=== PATIENT | male | born 1955 | race African-American/Black ===

== ENCOUNTER 2020-01-30 12:42 | Inpatient (IN) | payer OTHER ==
[~2020-01-30] VITALS: Ht 185.4 cm; Wt 102.0 kg
--- NOTE | 2020-01-30 12:42 | NUR ---
PT TO ROOM FOR BEDSIDE TRIAGE VIA ELS STRETCHER
[2020-01-30 15:13] LABS: HEMATOCRIT 44.3 % (39.0-50.0); HEMOGLOBIN 13.5 g/dl (14.0-18.0); IMMATURE GRANULOCYTES 0.9 % (0.0-5.0); MEAN CELL VOLUME 83.3 fL CALC (80.0-100.0); MEAN CORPUSCULAR HGB 25.4 pG CALC (26.0-32.0); MEAN CORPUSCULAR HGB CONC 30.5 g/dL CAL (32.0-36.0); NEUT# 7.74 thou/uL (1.82-7.42); RED BLOOD COUNT 5.32 mill/uL (4.70-6.10); RED CELL DISTRI WIDTH 14.1 % (11.5-15.5)
[2020-01-30 15:27] LABS: ALBUMIN 3.8 g/dL (3.2-5.0); BILIRUBIN, TOTAL 0.7 mg/dL (0.0-1.4); CREATININE 1.5 mg/dL (0.7-1.3); POTASSIUM 4.6 mmol/l (3.5-5.1); TOTAL PROTEIN 7.2 g/dL (6.3-8.2)
--- NOTE | 2020-01-30 15:36 | NUR ---
DELAY OF ANTIBIOTICS AND LABS DUE TO LACK OF IV ACCESS. PLACEMENT OF FEMORAL WAS DONE AND COMPLETED AT 1432. PT CURRENTLY WITHOUT DISTRESS.
[2020-01-30 15:44] LABS: C-REACTIVE PROTEIN 18.5 mg/dL (0-0.9)
--- NOTE | 2020-01-30 19:02 | NUR ---
REPORT CALLED AND GIVEN TO PABLO MILLAN. AWAITING TELE BOX BEFORE TRANSFERRING PATIENT
--- NOTE | 2020-01-30 19:41 | NUR ---
PT TRANSPORTED TO FLOOR VIA STRETCHER ON O2 @ 4 LPM. ESCORTED BY 2 OFFICERS. PT IN ANKLE SHACKLES.
--- NOTE | 2020-01-30 19:43 | NUR ---
PT ARRIVED TO FLOOR VIA STRETCHER ACCOMPAINED BY ER STAFF AND X2 GUARDS. PT SHACKLED BY RLE TO STRETCHER. ALERT AND ORIENTED. ON 3L/M 02 VIA NC. NO APPARENT DISTRESS OR SOB NOTED. PT AMBULATED FROM STRETCHER TO BED WITHOUT ASSISTANCE AND STEADY GAIT. SKIN INTACT. DISCUSSED POC AND ORIENTED TO ROOM AND CALL LIGHT SYSTEM. CALL LIGHT WITHIN REACH. WILL CONTINUE TO MONITOR.
[2020-01-30 20:45] VITALS: BP 131/77
--- NOTE | 2020-01-30 21:47 | NUR ---
PT MEDICATED ORDERED. EDUCATION PROVIDED. PT DENIES ANY CURRENT WANTS OR NEEDS. NO SOB OR PAIN AT THIS TIME. TRIPLE LUMEN TO RIGHT GROIN FLUSHED WELL WITH BLOOD RETURN NOTED. CALL LIGHT WITHIN REACH. X2 GUARDS REMAIN AT BEDSIDE. WILL CONTINUE TO MONITOR.
[2020-01-30 23:56] VITALS: BP 131/74
--- NOTE | 2020-01-31 01:22 | NUR ---
PT RESTING IN BED WITH EYES CLOSED. X2 GUARDS REMAIN AT BEDSIDE. NO APPARENT DISTRESS NOTED. [address] OPERATIONS AND INTELLIGENCE ASSISTANT IN PLACE. CALL LIGHT WITHIN REACH. WILL CONTINUE TO MONITOR.
[2020-01-31 05:03] VITALS: BP 127/82
--- NOTE | 2020-01-31 05:03 | NUR ---
LABS OBTAINED FROM TRIPLE LUMEN RIGHT FEMORAL CVAD PER ORDER. PT REQUEST SOMETHING FOR SORE THROAT AT THIS TIME. WILL NOTIFY IN CALL PHYSICIAN.
--- NOTE | 2020-01-31 05:39 | NUR ---
ORDERS RECEIVED FOR THROAT LOZENGE UPON REQUEST FOR SORE THROAT.
[2020-01-31 05:40] LABS: HEMATOCRIT 44.3 % (39.0-50.0); HEMOGLOBIN 13.4 g/dl (14.0-18.0); IMMATURE GRANULOCYTES 1.2 % (0.0-5.0); MEAN CELL VOLUME 83.3 fL CALC (80.0-100.0); MEAN CORPUSCULAR HGB 25.2 pG CALC (26.0-32.0); MEAN CORPUSCULAR HGB CONC 30.2 g/dL CAL (32.0-36.0); NEUT# 6.33 thou/uL (1.82-7.42); RED BLOOD COUNT 5.32 mill/uL (4.70-6.10); RED CELL DISTRI WIDTH 13.9 % (11.5-15.5)
[2020-01-31 06:04] LABS: ALBUMIN 3.5 g/dL (3.2-5.0); ALKALINE PHOSPHATASE 44 u/l (38-126); ANION GAP 11 (6-22 (CALC)); BILIRUBIN, TOTAL 0.6 mg/dL (0.0-1.4); BUN 23 mg/dL (8-23); BUN/CREATININE RATIO 23 (12-20 (CALC)); CARBON DIOXIDE 26 mmol/l (22-30); CHLORIDE 110 mmol/l (95-108); GFR > 60 ML/MIN (>=60 (CALC)); GFR FOR AFR.AMER. > 60 ML/MIN (>=60 (CALC)); SGOT/AST 58 u/l (19-48); SODIUM 142 mmol/l (137-146); TOTAL PROTEIN 6.7 g/dL (6.3-8.2)
--- NOTE | 2020-01-31 06:59 | NUR ---
PT MOVED TO ROOM 285 TO LIMIT AMOUNT OF EXPOSURE TO GUARDS.
[2020-01-31 07:30] VITALS: BP 123/77
--- NOTE | 2020-01-31 08:09 | NUR ---
Pt consents to pneumococcal vaccination, however reports he has already will received. Re-vaccination not indicated until >/=65 years old.
[2020-01-31 11:18] VITALS: BP 133/82
[2020-01-31 12:55] VITALS: BP 126/72
[2020-01-31 14:45] VITALS: BP 131/78
[2020-01-31 19:15] VITALS: BP 129/80
--- NOTE | 2020-01-31 19:25 | NUR ---
REPORT FROM GABRIELA MILLAN. ASSUME PT CARE.
--- NOTE | 2020-01-31 19:27 | NUR ---
new order this am for decadron 6mg, 6mg given and tolerated well, in to see, pt at bedside with 2 gurads no acute distress at this time
--- NOTE | 2020-01-31 21:11 | NUR ---
PT MEDICATED ORDERED. PT C/O SOB, 02 SATS 91-92% ON 4L/M VIA NC. ASSISTED PT WITH REPOSITIONED IN BED AND ENCOURAGED DEEP BREATHING EXERCISES. THROAT LOZENGE PROVIDED UPON REQUEST. TRIPLE LUMEN TO RIGHT FEMORAL, CDI AND FLUSHED WELL. NO OTHER CURRENT WANTS OR NEEDS. X2 GUARDS REMAIN AT BEDSIDE. PT SHACKLED TO BED BY LLE. CALL LIGHT WITHIN REACH. WILL CONTINUE TO MONITOR.
--- NOTE | 2020-02-01 01:52 | NUR ---
PT RESTING IN BED WITH EYES CLOSED. NO APPARENT DISTRESS NOTED. O2 IN PLACE. RESPIRATIONS EVEN AND UNLABORED. CALL LIGHT WITHIN REACH. WILL CONTINUE TO MONITOR.
[2020-02-01 04:50] VITALS: BP 118/81
[2020-02-01 06:35] LABS: HEMATOCRIT 44.8 % (39.0-50.0); HEMOGLOBIN 13.6 g/dl (14.0-18.0); IMMATURE GRANULOCYTES 1.5 % (0.0-5.0); MEAN CELL VOLUME 84.1 fL CALC (80.0-100.0); MEAN CORPUSCULAR HGB 25.5 pG CALC (26.0-32.0); MEAN CORPUSCULAR HGB CONC 30.4 g/dL CAL (32.0-36.0); NEUT# 8.21 thou/uL (1.82-7.42); RED BLOOD COUNT 5.33 mill/uL (4.70-6.10); RED CELL DISTRI WIDTH 13.9 % (11.5-15.5)
[2020-02-01 07:04] LABS: ALBUMIN 3.4 g/dL (3.2-5.0); ALKALINE PHOSPHATASE 33 u/l (38-126); BUN 22 mg/dL (8-23); BUN/CREATININE RATIO 24 (12-20 (CALC)); C-REACTIVE PROTEIN 6.3 mg/dL (0-0.9); CARBON DIOXIDE 25 mmol/l (22-30); CHLORIDE 110 mmol/l (95-108); CREATININE 0.9 mg/dL (0.7-1.3); GFR > 60 ML/MIN (>=60 (CALC)); GFR FOR AFR.AMER. > 60 ML/MIN (>=60 (CALC)); SGOT/AST 72 u/l (19-48); SODIUM 140 mmol/l (137-146); TOTAL PROTEIN 7.1 g/dL (6.3-8.2)
[2020-02-01 07:17] LABS: ANION GAP 11 (6-22 (CALC)); BILIRUBIN, TOTAL 1.1 mg/dL (0.0-1.4)
--- NOTE | 2020-02-01 09:10 | NUR ---
PT RESTING IN BED, ON SIGNS OF DISTRESS NOTED, RESP EVEN AND UNLABORED. PT C/O DRYNESS FROM OXYGEN, O2 HUMIDIFIED. PT ALERT AND ORIENTED X3, NO EDEMA, DISCUSSED POC, PT DENIES ANY PAIN AT THIS TIME, ONLY C/O SORETHROAT, LOZENGE PROVIDED. TRIPLE LUMEN CENTRAL LINE TO R FEMRAL FLUSHED WELL, ONLY BLOOD RETURN FROM WHITE LUMEN. ABD DISTENDED AND FIRM PT DENIES BM SINCE ADMIT. ASSESSMENT COMPLETED, CALL LIGHT IN REACH,CONTINUE TO MONITOR.
[2020-02-01 09:13] VITALS: BP 123/72
[2020-02-01 11:15] VITALS: BP 128/78
--- NOTE | 2020-02-01 12:30 | NUR ---
PT RESTING IN BED, LUNCH PROVIDED, NO SIGNS OF DISTRESS NOTED, RESP EVEN AND UNLABORED. GUARDS X2, CALL LIGHT IN REACH,CONTINUE TO MONITOR.
[2020-02-01 15:00] VITALS: BP 119/73
--- NOTE | 2020-02-01 15:56 | NUR ---
IV ZITHRO INITIATED, PT REQUESTING THROAT LOZENGE, NO SIGNS OF DISTRESS NOTED, RESP EVEN AND UNLABORED. CALL LIGHT IN REACH,CONTINUE TO MONITOR.
--- NOTE | 2020-02-01 19:02 | NUR ---
REPORT FROM LUBA PAGE. ASSUME PT CARE AT THIS TIME.
--- NOTE | 2020-02-01 20:53 | NUR ---
PT MEDICATED ORDERED. 02 SAT 92% ON 4L/M VIA NC. ENCOURAGED PT TO PULL SELF UP IN BED, KEEP HOB ELEVATED, AND DEEP BREATHIN EXERCISES. THROAT LOZENGE PROVIDED UPON REQUEST. TRIPLE LUMEN TO RIGHT FEMORAL, CDI AND FLUSHED WELL. NO OTHER CURRENT WANTS OR NEEDS. X2 GUARDS REMAIN AT BEDSIDE. PT SHACKLED TO BED BY RLE. CALL LIGHT WITHIN REACH. WILL CONTINUE TO MONITOR.
[2020-02-01 21:50] VITALS: BP 126/88
[2020-02-02 00:15] VITALS: BP 140/80
--- NOTE | 2020-02-02 00:15 | NUR ---
PT RESTING IN BED WITH EYES CLOSED. NO APPARENT DISTRESS NOTED. REMAINS ON 4L/M O2 VIA NC. VSS. CALL LIGHT WITHIN REACH. WILL CONTINUE TO MONITOR.
--- NOTE | 2020-02-02 04:03 | NUR ---
[facility] CALLED AND UPDATED ON PT CONDITION AT THIS TIME.
[2020-02-02 04:20] VITALS: BP 134/70
[2020-02-02 12:20] LABS: ANION GAP 13 (6-22 (CALC)); BUN 23 mg/dL (8-23); BUN/CREATININE RATIO 24 (12-20 (CALC)); CARBON DIOXIDE 19 mmol/l (22-30); CHLORIDE 114 mmol/l (95-108); GFR > 60 ML/MIN (>=60 (CALC)); GFR FOR AFR.AMER. > 60 ML/MIN (>=60 (CALC)); POTASSIUM 5.1 mmol/l (3.5-5.1); SODIUM 141 mmol/l (137-146)
[2020-02-02 15:34] VITALS: BP 122/81
--- NOTE | 2020-02-02 19:45 | NUR ---
REPORT FROM GABRIELA MILLAN ([facility]). ASSUME PT CARE AT THIS TIME.
[2020-02-02 20:00] VITALS: BP 93/63
--- NOTE | 2020-02-03 01:03 | NUR ---
PT RESTING IN BED WITH EYES CLOSED. NO APPARENT DISTRESS NOTED. REMAINS ON 4L/M O2 VIA NC. VSS. CALL LIGHT WITHIN REACH. WILL CONTINUE TO MONITOR.
[2020-02-03 04:00] VITALS: BP 137/83
--- NOTE | 2020-02-03 05:05 | NUR ---
LABS OBTAINED FROM RIGHT FEMORAL TRIPLE LUMEN PER PROTOCOL. PT TOLERATED WELL. CHAIR PROVIDED IN ROOM FOR PT TO GET OOB FOR MEALS. NO CURRENT WANTS OR NEEDS. CALL LIGHT WITHIN REACH. WILL CONTINUE TO MONITOR.
[2020-02-03 05:50] LABS: HEMOGLOBIN 13.4 g/dl (14.0-18.0); IMMATURE GRANULOCYTES 4.7 % (0.0-5.0); MEAN CELL VOLUME 83.3 fL CALC (80.0-100.0); MEAN CORPUSCULAR HGB 25.4 pG CALC (26.0-32.0); MEAN CORPUSCULAR HGB CONC 30.5 g/dL CAL (32.0-36.0); NEUT# 8.01 thou/uL (1.82-7.42); RED BLOOD COUNT 5.28 mill/uL (4.70-6.10); RED CELL DISTRI WIDTH 13.4 % (11.5-15.5)
[2020-02-03 06:14] LABS: ALBUMIN 3.3 g/dL (3.2-5.0); ALKALINE PHOSPHATASE 44 u/l (38-126); BILIRUBIN, TOTAL 0.8 mg/dL (0.0-1.4); BUN 23 mg/dL (8-23); BUN/CREATININE RATIO 23 (12-20 (CALC)); C-REACTIVE PROTEIN 4.8 mg/dL (0-0.9); CHLORIDE 109 mmol/l (95-108); GFR > 60 ML/MIN (>=60 (CALC)); GFR FOR AFR.AMER. > 60 ML/MIN (>=60 (CALC)); POTASSIUM 4.9 mmol/l (3.5-5.1); SGOT/AST 85 u/l (19-48); SODIUM 142 mmol/l (137-146); TOTAL PROTEIN 6.6 g/dL (6.3-8.2)
[2020-02-03 06:24] LABS: ANION GAP 13 (6-22 (CALC)); CARBON DIOXIDE 25 mmol/l (22-30)
[2020-02-03 08:30] VITALS: BP 123/81
--- NOTE | 2020-02-03 08:30 | NUR ---
ASSESSMENT IS COMPLETED: IV SITE IS FREE FROM REDNESS OR EDEMA. HR IS RE,GPULSES ARE STRONG X4, ABD IS SOFT WITH ACTIVE BS. BREATH SOUNDS ARE CLEAR,BILATERALLY, AND DIMINSHED. GUARDS ARE OUTSIDE OF THE ROOM. IN THE ANTE ROOM.
[2020-02-03 10:30] VITALS: BP 115/60
--- NOTE | 2020-02-03 12:30 | NUR ---
PT IS RELAXING IN BED WITH NO DISTRESS NOTED. IV SITE IS FREE FROM RENDESS OR EDEMA.
[2020-02-03 15:00] VITALS: BP 119/81
--- NOTE | 2020-02-03 16:30 | NUR ---
PT IS RELAXING IN BED HAS BEEN IN THE CHAIR TODAY,. IV SITE IS FREE FROM REDNESS OR EDEMA.
[2020-02-03 20:00] VITALS: BP 151/73
--- NOTE | 2020-02-03 20:00 | NUR ---
RECEIVED REPORT FROM NURSE HUERTAS PATIENT, PATIENT CURRENTLY WATCHING TV, BREATHING SHALLOW UNLABORED, REMAINS ON HUMIDIFIED O2 @ 4LPM VIA NC, POX 93%, WITH TRIPLE LUMEN IV ON RT FEMORAL PATENT FLUSHES WELL, NO BLOOD RETURN NOTED ON ALL THREE LUMEN, WILL RETRY LATER, LBM 1116, LUNG SOUNDS DIMINISHED, BOWEL SOUNDS ACTIVE. PATIENT LEG SHACKLED TO BED, GUARD IN ROOM, CALL LIGHT AT REACH.
--- NOTE | 2020-02-04 | NUR ---
PATIENT RESTING IN BED EYES CLOSED, NOT IN DISTRESS REMAINS ON O2 @ 4LPM, GUARD IN ANTEROOM, CALL LIGHT AT REACH.
[2020-02-04 04:00] VITALS: BP 135/82
--- NOTE | 2020-02-04 04:22 | NUR ---
PATIENT RESTING IN BED, REMAINS ON O2 THERAPY AT 4LPM, BREATHING UNLABORED, MORNING LABS DRAWN FROM TRIPLE LUMEN LINE, FLUSHED PER PROTOCOL, LEFT LEG REMAINS SHACKLED IN BED, SKIN INTACT CALL LIGHT AT REACH.
[2020-02-04 05:21] LABS: HEMATOCRIT 43.8 % (39.0-50.0); HEMOGLOBIN 13.2 g/dl (14.0-18.0); IMMATURE GRANULOCYTES 5.1 % (0.0-5.0); MEAN CELL VOLUME 83.6 fL CALC (80.0-100.0); MEAN CORPUSCULAR HGB 25.2 pG CALC (26.0-32.0); MEAN CORPUSCULAR HGB CONC 30.1 g/dL CAL (32.0-36.0); NEUT# 9.09 thou/uL (1.82-7.42); RED BLOOD COUNT 5.24 mill/uL (4.70-6.10); RED CELL DISTRI WIDTH 13.4 % (11.5-15.5)
[2020-02-04 05:53] LABS: ALBUMIN 3.2 g/dL (3.2-5.0); ALKALINE PHOSPHATASE 48 u/l (38-126); ANION GAP 12 (6-22 (CALC)); BILIRUBIN, TOTAL 0.5 mg/dL (0.0-1.4); BUN 19 mg/dL (8-23); BUN/CREATININE RATIO 18 (12-20 (CALC)); C-REACTIVE PROTEIN 3.3 mg/dL (0-0.9); CARBON DIOXIDE 25 mmol/l (22-30); CHLORIDE 109 mmol/l (95-108); CREATININE 1.1 mg/dL (0.7-1.3); GFR > 60 ML/MIN (>=60 (CALC)); GFR FOR AFR.AMER. > 60 ML/MIN (>=60 (CALC)); POTASSIUM 5.1 mmol/l (3.5-5.1); SGOT/AST 81 u/l (19-48); SODIUM 140 mmol/l (137-146); TOTAL PROTEIN 6.2 g/dL (6.3-8.2)
[2020-02-04 08:00] VITALS: BP 150/86
--- NOTE | 2020-02-04 09:00 | NUR ---
PT SEEN AWAKE, ALERT, ORIENTED X 3. LUNGS CLEAR BUT DIMINISHED, 4 LPM NC. NO REPORT OF SHORTNESS OF BREATH. PT AMBULATORY IN ROOM TO BATH AND SHOWER DESIRED.
--- NOTE | 2020-02-04 13:00 | NUR ---
PT SEEN BY DR DIXON THIS MORNING, NO CHANGE IN PLAN OF CARE. PT SHOWERED THIS MORNING, DOES WELL AMBULATING. NO REPORT OF SHORTNESS OF BREATH OR OTHERWISE.
[2020-02-04 15:43] VITALS: BP 118/76
--- NOTE | 2020-02-04 17:16 | NUR ---
PT RESTING IN THE BED THIS AFTERNOON WITHOUT COMPLAINT OR EVIDENCE OF DISTRESS.
[2020-02-04 19:00] VITALS: BP 120/81
--- NOTE | 2020-02-04 20:24 | NUR ---
PT MEDICATED ORDERS PROVIDE AND ASSESSMENT COMPLETED AT THIS TIME. LUNG SOUNDS CLEAR/DIM, ABD FIRM NON-TENDER WITH ACTIVE BS. 500CC OF CLEAR YELLOW URINE EMPTIED FROM URINAL AT BEDSIDE. UPON ENTRANCE TO ROOM, PT REPORTS HAVING BEEN "DOING MY EXERCIES." WHEN I ASKED ABOUT THIS, PT BEGAN DOING SIT-UPS IN THE BED. PT DENIES SOB, CP, N/V, BUT DOES REPORT THAT HE HAS HAD SEVERAL EPISODES OF LOOSE STOOL THROUGHOUT THIS DAY. PT PROVIDED SNACK AND FRESH ICEWATER AT THIS TIME. PT C/O TENDERNESS AT NARE, OXYGEN IS HUMIDIFIED, BUT PETROLEUM JELLY PROVIDED PER REQUEST FOR COMFORT TO OUTER NARE IRRITATION. PT DENIES ANY OTHER NEEDS AT THIS TIME. CALL LIGHT IS W/IN HAND AND PT ENCOURAGED TO CALL NEEDS ARISE.
--- NOTE | 2020-02-04 23:05 | NUR ---
PT IN BED SLEEPING, AWOKE TO MY ENTERING THE ROOM. NO S/O DISTRESS NOTED, DENIES ANY NEEDS AT THIS TIME. CALL LIGHT AT SIDE.
--- NOTE | 2020-02-05 01:58 | NUR ---
Pt was sleeping, awoke to my voice and entering room. Oxygen titrated down to 2L and pt sat levels holding @97% on 2L. Will continue to monitor for oxygen sat levels. Pt denies any other needs at this time. Call light at side, guard outside of the room and pt encouraged to call as needs arise.
[2020-02-05 04:00] VITALS: BP 135/77
--- NOTE | 2020-02-05 05:53 | NUR ---
PT STANDING NEXT TO THE BED TRYING TO EXERCISE AND PRAYING. PT STATES HE HAS SLEPT ENOUGH, "TIME TO GET MOVING." HE REPORTS HAVING ALREADY HAD A SHOWER AND BRUSED HIS TEETH. "GETTING READY TO EXERCISE." PT HAS MILD SOB AT THIS TIME, I ADVISED PT TO CONTINUE TO MOVE OUT OF THE BED, BUT NOT TO OVERDO, NOT ALLOWING HIS OXYGEN TO DROP. VERBALIZED UNDERSTANDING. GUARD IN ANTI-ROOM.
[2020-02-05 08:27] VITALS: BP 156/80
--- NOTE | 2020-02-05 08:27 | NUR ---
REPORT RECIEVED FROM MONTY NICHOLS. PT RESTING IN SEMI FOWLERS POSITION UPON ENTERING ROOM.INTRODUCED SELF TO PT AND DISCUSSED POC.PT IS FROM [facility] WITH GUARD OUTSIDE DOOR. PT IS A/O X3. ASSESSMENT AND VITALS COMPLETED RESPIRATIONS ARE EVEN AND UNLABORED ON 2L NC.PT REPORTS NOT WEARING OXYGEN ALL NIGHT. PT THEN REMOVED STARTED DOING SIT UPS. HEART RHYTHM NORMAL. BOWEL SOUNDS ARE ACTIVE IN ALL QUADRANTS, LAST REPORETD BM 02/04/2020. RIGHT FEMORAL TRIPLE LUMEN FLUSHED, SITE APPEARS HEALTHY AND PATENT. PT COMPLAINS OF COUGH, PT TO BE MEDICATED PER EMAR. PT DENIES ANY PAIN OR DISCOMFORTS AT THIS TIME. ALL SAFTEY AND ISOLATION PRECAUTIONS ARE IN PLACE WIHT CALL LIGHT IN REACH. WILL CONTINUE TO MONITOR
[2020-02-05] MEDS ORDERED: DEXAMETHASON6 MG PO (11:11)
[2020-02-05 11:43] VITALS: BP 140/78
--- NOTE | 2020-02-05 12:43 | NUR ---
PT EDUACTED ON DISCHARGE INSTRUCTIONS AND DEXAMETHASONE. PT VERABILZED UNDERSTANDING. FEMORAL LINE TO BE REMOVED BY MONTY ALVARADO. PT DENIES ANY NEEDS AT THIS TIME. TRANSPORTATION TO BE SET UP PER FACILTY. ALL SAFETY PRECAUTIONS ARE IN PLACE WITH CALL LIGHT IN REACH. WILL CONTINUE TO MONITOR
--- NOTE | 2020-02-05 13:11 | NUR ---
FEMORAL LINE REMOVED BY MONTY ALVARADO. PT TOELRATED WELL.
--- NOTE | 2020-02-05 13:31 | NUR ---
PT DISCHARGED BACK TO [facility] VIA WHEELCHAIR IN STABLE CONDITION ACCOMPAINED BY WRITTER. PT LEFT WITH ALL DISCHARGE INSTRUCTIONS AND BELONGINGS.
--- NOTE | 2020-02-05 13:42 | NUR ---
REPORT GIVEN TO NURSE AT [facility]
== END 2020-02-05 13:31 | disposition designated cancer center or children's hospital (05) | DRG 177 ==
LOC: ED 12:42 → ED-I 12:59 → ED 12:59 → ED-I 16:41 → ED 17:21 → MS2 17:22
PROVIDERS: Family Medicine; Nurse Practitioner Family; ADMIT Internal Medicine; ATTEND Internal Medicine
PROC: 06HY33Z Insertion of Infusion Device into Lower Vein, Percutaneous Approach (ICD-10-PCS; principal; 2020-01-30)
PROC: 3E02340 Introduction of Influenza Vaccine into Muscle, Percutaneous Approach (ICD-10-PCS; 2020-01-31)
PROC: XW033E5 Introduction of Remdesivir Anti-infective into Peripheral Vein, Percutaneous Approach, New Technology Group 5 (ICD-10-PCS; 2020-02-03)
DX: U07.1 COVID-19 (principal); J12.89 Other viral pneumonia; J96.00 Acute respiratory failure, unspecified whether with hypoxia or hypercapnia; E87.5 Hyperkalemia; Z23 Encounter for immunization
CPT/HCPCS: J1650; Q9967

== ENCOUNTER 2023-11-09 06:51 | Day surgery (SDC) | payer OTHER ==
[~2023-11-09] VITALS: Ht 185.4 cm; Wt 110.7 kg
[~2023-11-09 06:51] MED LIST: DEXAMETHASON6 MG PO; LIPITOR20 M1 PO; MAXZIDE-25MG1 COMBO PO; METFORMIN500 M2 PO; NORVASC PO
[2023-11-09] MEDS ORDERED: FAMOTIDINE 10MG/ML 2ML SDV IV ONE (07:00)
[2023-11-09] MEDS ORDERED: SODIUM CHLORIDE 0.9% 1,000 ML IV ONE (07:00)
[2023-11-09 09:27] VITALS: BP 135/89
[2023-11-09] MEDS ORDERED: LIDOCAINE HCL 2% 2ML SDV IV ONE (15:55)
[2023-11-09] MEDS ORDERED: PROPOFOL 200 MG/20 ML VIAL IV ONE (15:55)
== END 2023-11-09 09:55 | disposition designated cancer center or children's hospital (05) | DRG 395 ==
LOC: ENDO 06:51 → ORM 08:00 → ENDO 09:55
PROVIDERS: ATTEND Surgery
PROC: 0DBP8ZX Excision of Rectum, Via Natural or Artificial Opening Endoscopic, Diagnostic (ICD-10-PCS; principal; 2023-11-09)
PROC: 0DBN8ZX Excision of Sigmoid Colon, Via Natural or Artificial Opening Endoscopic, Diagnostic (ICD-10-PCS; 2023-11-09)
DX: D12.8 Benign neoplasm of rectum (principal); K63.5 Polyp of colon; K64.8 Other hemorrhoids; I10 Essential (primary) hypertension; E78.00 Pure hypercholesterolemia, unspecified